=== PATIENT | male | born 1955 | race Caucasian/White ===

== ENCOUNTER → 2024-03-09 09:14 | Day surgery (SDC) | payer BC, SELFPAY ==
[2024-03-09 10:49] LABS: Glucose - Point of Care 104 mg/dl (70-99)
== END ==
LOC: CATH 09:14
PROVIDERS: ATTENDING PHYSICIAN Internal Medicine Cardiovascular Disease; OTHER PHYSICIAN Internal Medicine Cardiovascular Disease
DX: I48.19 Other persistent atrial fibrillation (principal); Z53.29 Procedure and treatment not carried out because of patient's decision for other reasons; I10 Essential (primary) hypertension; R73.03 Prediabetes
CPT/HCPCS: 82962

== ENCOUNTER 2024-03-19 06:49 | Day surgery (SDC) | payer BC, SELFPAY ==
--- NOTE | 2024-03-19 11:06 | ITS.CL.IMPLP ---
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
Implant Loop
Procedure Report:
Date of Procedure: March 19, 2024
Primary Care Provider: Evelyn Shook D.O.
Primary social worker assistant: Tu Maldonado M.D.
Procedure: Insertable Loop Recorder Implantation
Indication:
Atrial fibrillation
He underwent PVI on March 21, 2022 and has had no symptomatic or documented recurrences of atrial fibrillation since that time
CHADSVASc = 3 (HTN, age and DM)
He wishes to come off of lifelong anticoagulation unless there is documented recurrence of atrial fibrillation
Procedure:
The patient was brought to the procedure area in a fasting state. The anterior chest was prepped and draped in standard sterile fashion. The fourth intercostal space along the left sternal border was identified and this area was anesthetized with 10
mL of 1% lidocaine. After gathering the skin in this area, a small punch incision was made at approx intercostal space 4-5 at left costo-sternal junction using the provided scalpel/punch tool. The loop recorder was loaded into the tunneling device.
A tunnel was created in the subcutaneous tissue at a 45� angle along the coronal plane away from the sternum and towards the left flank. The tunneling device was inverted and the plunger was depressed, inserting the loop recorder into the
subcutaneous space. The tunneling device was removed. Manual pressure provide hemostasis. Adequate signal was confirmed. The skin was closed with steri-strips. The estimated blood loss was < 1 cc. A clean dressing was placed over the wound.
There were no complications.
Implant:
[employer] Reveal LINQ ii
Conclusion: Uncomplicated implantation of loop recorder.
Recommendation:
Routine ILR care.
He will remain off of oral anticoagulation unless there is documented sustained atrial fibrillation
Copy:
Evelyn Shook D.O.
Tu Maldonado M.D.
== END 2024-03-19 08:16 | disposition home or self-care (01) ==
LOC: CATH 06:49
PROVIDERS: ATTENDING PHYSICIAN Internal Medicine Cardiovascular Disease; OTHER PHYSICIAN Internal Medicine Cardiovascular Disease
DX: Z09 Encounter for follow-up examination after completed treatment for conditions other than malignant neoplasm (principal); I48.91 Unspecified atrial fibrillation; Z79.01 Long term (current) use of anticoagulants; I10 Essential (primary) hypertension; E11.9 Type 2 diabetes mellitus without complications
CPT/HCPCS: 33285; C1764